=== PATIENT | male | born 1980 | race Asian ===

== ENCOUNTER 2023-06-08 11:33 | Emergency (ER) | payer OTHER ==
[~2023-06-08] VITALS: Ht 170.2 cm; Wt 86.2 kg
[2023-06-08 11:52] VITALS: BP_SYST 157; PULSE 114; RESP 18; TEMP 100.2; O2SAT 97
[2023-06-08] MEDS ORDERED: NACL 0.9% 1,000 ML IV ONE (12:15)
[2023-06-08 12:26] LABS: BILIRUBIN,URINE NEGATIVE (NEGATIVE); BLOOD, URINE 1+ (NEGATIVE); CLARITY/URINE CLEAR (CLEAR); COLOR,URINE YELLOW (YELLOW); GLUCOSE,URINE NEGATIVE (NEGATIVE); KETONES,URINE NEGATIVE (NEGATIVE); LEUKOCYTE ESTERASE ,URINE NEGATIVE (NEGATIVE); NITRITE, URINE NEGATIVE (NEGATIVE); PROTEIN URINE NEGATIVE (NEGATIVE)
[2023-06-08 12:51] LABS: COVID19 ANTIGEN SOFIA FIA NEGATIVE (NEGATIVE)
[2023-06-08] MEDS ORDERED: IBUPROFEN 600 MG TABLET ONE (13:28)
[2023-06-08 13:29] LABS: BACTERIA,URINE None Seen /HPF (None Seen); RBC,URINE 0-3 /HPF (0-3); WBC,URINE 0-3 /HPF (0-3)
[2023-06-08] MEDS ORDERED: IBUPROFEN 600 MG TABLET PO ONE (13:30)
[2023-06-08 13:31] LABS: CALCIUM 9.7 mg/dL (8.4-11.0); CREATININE 1.12 mg/dL (0.55-1.30); POTASSIUM 3.7 mmol/L (3.5-5.1)
[2023-06-08 13:41] LABS: INFLUENZA TYPE A POSITIVE (NEGATIVE); INFLUENZA TYPE B NEGATIVE (NEGATIVE)
[2023-06-08 13:42] LABS: STREPTOCOCCUS A SCREEN (RAPID) NEGATIVE (NEGATIVE)
[2023-06-08] MEDS ORDERED: OSEL75CA PO (13:45)
[2023-06-08 14:18] VITALS: BP_SYST 145; PULSE 100; RESP 18; TEMP 99.5; O2SAT 97
[2023-06-08 14:44] LABS: BASOPHILS % (AUTO) 0.2 % (0.0-2.0); HEMATOCRIT 47.5 % (36-54); HEMOGLOBIN 16.2 g/dL (14.0-18.0); LYMPHOCYTES # (AUTO) 0.8 K/uL (1.0-5.5); MEAN CORPUSCULAR HEMOGLOBIN 30 pg (27-31); MEAN CORPUSCULAR HGB CONC 34 % (32-36); MEAN CORPUSCULAR VOLUME 88 fL (79.0-98.0); MONOCYTES # (AUTO) 1.4 K/uL (0.0-1.0); NEUTROPHILS # (AUTO) 7.8 K/uL (1.8-7.7); NEUTROPHILS % (AUTO) 77.8 % (40.0-70.0); PLATELET COUNT (AUTO) 178 K/uL (130-430); RED BLOOD CELL COUNT(AUTO) 5.39 MIL/uL (4.2-6.2); RED CELL DISTRIBUTION WIDTH 13.5 % (9.0-15.0)
== END 2023-06-08 14:17 | disposition home or self-care (01) ==
LOC: SED 11:33
DX: J10.1 Influenza due to other identified influenza virus with other respiratory manifestations (principal); Z79.899 Other long term (current) drug therapy; Z20.822 Contact with and (suspected) exposure to COVID-19
CPT/HCPCS: 99283; 96360; 87426; 80048; 81001; 85025; 86403; 36415; 87081; 83605; 87804 ×2; 87040; J7030; 81000; 81015